=== PATIENT | female | born 1950 | race Caucasian/White ===

== ENCOUNTER 2021-11-18 07:06 | Day surgery (SDC) | payer MEDICARE ==
[2021-11-18] MEDS ORDERED: Depo-Medrol 40 MG/ML IM ONE (07:07)
[2021-11-18] MEDS ORDERED: BUPIVACAINE 0.5% VIAL IJ ONE (07:07)
[2021-11-18] MEDS ORDERED: DIPRIVAN 200 MG/20 ML IV ONE (08:46)
[2021-11-18] MEDS ORDERED: Lactated Ringers 1,000 ML IV ONE (09:24)
--- NOTE | 2021-11-18 10:11 | XRAY ---
Indication: Bilateral SI joint injection. Intraoperative fluoroscopy provided for 18 seconds. 4 digital spot image submitted for interpretation demonstrates posterior needle tip projecting over the inferior left and right SI joint. Correlate with intraoperative findings/report.
--- NOTE | 2021-11-18 10:13 | XRAY ---
18 seconds fluoroscopy time in surgery for bilateral SI joint injections.
== END 2021-11-18 09:10 | disposition home or self-care (01) ==
LOC: SDC-PAIN 07:06
PROVIDERS: ATTEND Psychiatry & Neurology Pain Medicine
DX: M46.1 Sacroiliitis, not elsewhere classified (principal); E11.9 Type 2 diabetes mellitus without complications; Z79.899 Other long term (current) drug therapy
CPT/HCPCS: 27096; 72202; 77002; 82947; G0260; 99100; J1030; J2704

== ENCOUNTER 2024-08-22 10:41 | Day surgery (SDC) | payer MEDICARE ==
[2024-08-22] MEDS ORDERED: Depo-Medrol 40 MG/ML IM ONE (10:42)
[2024-08-22] MEDS ORDERED: BUPIVACAINE 0.5% VIAL IJ ONE (10:42)
[2024-08-22] MEDS ORDERED: DIPRIVAN 200 MG/20 ML IV ONE (12:15)
--- NOTE | 2024-08-22 19:02 | XRAY ---
Indication: Bilateral SI joint and greater trochanter bursa injection. Intraoperative fluoroscopy provided for 21 seconds. 4 digital spot image submitted for interpretation demonstrates needle tips projecting lateral to left/right SI joints and greater trochanters. Small amount of contrast injected for all needle tip placement. Correlate with intraoperative findings/report.
--- NOTE | 2024-08-22 19:23 | XRAY ---
21 seconds of fluoroscopy was used in surgery for a bilateral sacroiliac joint and greater trochanteric bursa injection.
== END 2024-08-22 13:00 | disposition home or self-care (01) ==
LOC: SDC-PAIN 10:41
PROVIDERS: ATTEND Psychiatry & Neurology Pain Medicine
DX: M46.1 Sacroiliitis, not elsewhere classified (principal); E11.9 Type 2 diabetes mellitus without complications; M70.62 Trochanteric bursitis, left hip; M70.61 Trochanteric bursitis, right hip
CPT/HCPCS: 20610; 73521; 77002; 82947; G0260; 27096; J2704; Q9966